=== PATIENT | male | born 1970 | race Caucasian/White ===

== ENCOUNTER 2018-01-21 13:14 | Day surgery (SDC) | payer BC ==
[~2018-01-21] VITALS: Ht 177.8 cm; Wt 66.9 kg
[2018-01-21] MEDS ORDERED: TOPROL XL 50MG50 MG (13:42)
[2018-01-21 13:44] VITALS: BP 159/82; PULSE 105; TEMP 98.2
[2018-01-21] MEDS ORDERED: CIPRO 500MG TA500 MG PO (13:44)
[2018-01-21 16:25] VITALS: BP 121/74; PULSE 79
[2018-01-21 16:34] VITALS: BP 124/69; PULSE 100; TEMP 100.7
[2018-01-21 16:40] VITALS: BP 121/78; PULSE 74; TEMP 97.9
[2018-01-21 16:55] VITALS: BP 125/78; PULSE 81
== END 2018-01-21 17:16 | disposition home or self-care (01) ==
LOC: SDCO 13:14
DX: K94.09 Other complications of colostomy (principal); D64.9 Anemia, unspecified; K21.9 Gastro-esophageal reflux disease without esophagitis; I10 Essential (primary) hypertension; Z85.51 Personal history of malignant neoplasm of bladder; Z83.3 Family history of diabetes mellitus
CPT/HCPCS: J0690; J2704; J3010; J7120

== ENCOUNTER → 2018-02-11 | Outpatient (CLI) | payer BC ==
[2018-02-11] VITALS (13 sets, daily range): BP systolic 106–159; BP diastolic 64–88; PULSE 59–81
[~2018-02-11] VITALS: Ht 177.8 cm; Wt 70.5 kg
[~2018-02-11] MED LIST: CIPRO 500MG TA500 MG PO; TOPROL XL 50MG50 MG; TOPROL XL 50MG50 MG PO
[2018-02-11 11:16] LABS: INR 1.2 (0.8-3.0); PROTHROMBIN TIME 13.4 SECONDS (9.7-12.8)
== END ==
LOC: COL.RAD 10:15
PROVIDERS: Internal Medicine
DX: C18.9 Malignant neoplasm of colon, unspecified (principal); K76.89 Other specified diseases of liver; Z85.51 Personal history of malignant neoplasm of bladder; Z92.21 Personal history of antineoplastic chemotherapy; Z92.3 Personal history of irradiation
CPT/HCPCS: J2250; J3010

== ENCOUNTER → 2018-03-20 | Outpatient (CLI) | payer BC | LOC: COL.RAD 10:16 | DX: Z43.6 Encounter for attention to other artificial openings of urinary tract (principal); N13.1 Hydronephrosis with ureteral stricture, not elsewhere classified ==

== ENCOUNTER 2018-04-02 12:07 | Day surgery (SDC) | payer BC ==
[~2018-04-02] VITALS: Ht 177.8 cm; Wt 64.5 kg
[2018-04-02 12:33] VITALS: BP 124/79; PULSE 93; TEMP 98.2
[2018-04-02] MEDS ORDERED: ELIQUIS 2.5 PO (12:40)
[2018-04-02 16:04] VITALS: BP 108/68; PULSE 94
[2018-04-02] MEDS ORDERED: NORCO 325 MG-51 TAB PO (16:14)
[2018-04-02 16:20] VITALS: BP 107/66; PULSE 82
[2018-04-02 16:35] VITALS: BP 98/62; PULSE 72
== END 2018-04-02 16:55 | disposition home or self-care (01) ==
LOC: SDCO 12:07
DX: C18.9 Malignant neoplasm of colon, unspecified (principal); C78.7 Secondary malignant neoplasm of liver and intrahepatic bile duct; Z79.899 Other long term (current) drug therapy; I10 Essential (primary) hypertension; K21.9 Gastro-esophageal reflux disease without esophagitis; Z92.21 Personal history of antineoplastic chemotherapy; Z92.3 Personal history of irradiation; Z85.51 Personal history of malignant neoplasm of bladder; Z79.01 Long term (current) use of anticoagulants; Z93.6 Other artificial openings of urinary tract status
CPT/HCPCS: C1788; J0690; J1644; J2250; J2704; J3010; J7120

== ENCOUNTER → 2018-11-04 | Outpatient (CLI) | payer BC ==
[~2018-11-04] VITALS: Ht 177.8 cm; Wt 65.0 kg
[~2018-11-04] MED LIST changes: +ELIQUIS 2.5 PO; +NORCO 325 MG-51 TAB PO
[2018-11-04 13:10] VITALS: BP 126/78; PULSE 117
[2018-11-04 14:30] VITALS: BP 107/71; PULSE 118
[2018-11-04 15:01] LABS: PLEURAL FLUID RBC 2000 /mm3 (0-0); PLEURAL FLUID WBC 1365 /mm3
[2018-11-04 15:14] LABS: PLEURAL FLUID COLOR YELLOW
--- NOTE | 2018-11-04 15:14 | NUR ---
PT TAKEN DOWN TO POV IN WHEELCHAIR. PT VERBALILZED NO COMPLAINTS OF PAIN OR NEEDS
[2018-11-04 15:15] LABS: PLEURAL FLUID APPEARANCE HAZY
[2018-11-04 15:52] LABS: GLUCOSE,PLEURAL FLUID 115 mg/dL; TOTAL PROTEIN,PLEURAL FLUID 3.3 gm/dL
== END ==
LOC: COL.RAD 12:48
PROVIDERS: Internal Medicine
DX: C18.8 Malignant neoplasm of overlapping sites of colon (principal); J90 Pleural effusion, not elsewhere classified

== ENCOUNTER → 2018-11-06 | Outpatient (CLI) | payer BC ==
[~2018-11-06] VITALS: Ht 177.8 cm; Wt 64.1 kg
[2018-11-06] VITALS (14 sets, daily range): BP systolic 104–129; BP diastolic 67–86; PULSE 102–117
[~2018-11-06] MED LIST changes: +OMNICEF 300MG300 MG PO
[2018-11-06 08:35] LABS: INR 1.1 (0.8-3.0)
--- NOTE | 2018-11-06 08:50 | NUR ---
pt to ct per wheelchair. Pt positioned in prone position. Monitors applied to pt.
--- NOTE | 2018-11-06 09:00 | NUR ---
Dr Arroyo into room and talks with pt.
--- NOTE | 2018-11-06 09:06 | NUR ---
Specimen obtained by Dr Arroyo, removed 380 mls of yellow brown drainage. Specimens labeled.
[2018-11-06 10:37] LABS: PERITONEAL -POLYMORPHONUCLEAR 72.1 % (0-25)
[2018-11-06 10:38] LABS: PERITONEAL FLUID RBC 45000 /mm3 (0-0)
--- NOTE | 2018-11-06 10:38 | NUR ---
Dismissal instructions gone over with pt. Verbalized understanding of instructions.
--- NOTE | 2018-11-06 11:30 | NUR ---
pt out to car per wheelchair. Denies complaints at this time. Pt up and into car without difficulty.
== END ==
LOC: COL.RAD 08:06
PROVIDERS: Internal Medicine
DX: C18.8 Malignant neoplasm of overlapping sites of colon (principal); C78.5 Secondary malignant neoplasm of large intestine and rectum; K76.89 Other specified diseases of liver; N19 Unspecified kidney failure; N13.30 Unspecified hydronephrosis; R60.0 Localized edema; D50.9 Iron deficiency anemia, unspecified; D72.829 Elevated white blood cell count, unspecified; Z85.51 Personal history of malignant neoplasm of bladder; Z92.21 Personal history of antineoplastic chemotherapy; Z92.3 Personal history of irradiation; J90 Pleural effusion, not elsewhere classified; Z93.6 Other artificial openings of urinary tract status
CPT/HCPCS: 19804

== ENCOUNTER 2018-11-10 13:50 | Observation (INO) | payer BC ==
[~2018-11-10] VITALS: Ht 157.5 cm; Wt 68.0 kg
[~2018-11-10 13:50] MED LIST changes: -OMNICEF 300MG300 MG PO
[2018-11-10] MEDS ORDERED: CIPRO 500MG TA500 MG PO (14:08)
[2018-11-10 14:11] VITALS: BP 118/68; PULSE 105; TEMP 98.2
--- NOTE | 2018-11-10 14:15 | NUR ---
PT ARRIVED TO ROOM 309 VIA WHEELCHAIR.ORIENTED TO ROOM.CALL LIGHT IN PLACE.DENIES ANY NEEDS AT THIS TIME.WILL CONTINUE TO MONITOR.
--- NOTE | 2018-11-10 14:30 | NUR ---
PATIENT AWAKE,A/OX3.DENIES ANY PAIN OR DISCOMFORT AT THIS TIME.AMBULATES WITH SBA.LSCTA.VITALS OBTAINED AND STABLE.RETAIL SHIFT SUPERVISOR EQUAL BILAT.ABD SOFT AND NON TENDER.BOWEL SOUNDS PRESENT AND AUDIBLE.ILEOSTOMY TO LEFT LOWER ABD.PULSES PALPABLE.1+ EDEMA TO BILAT LOWER EXTREMITIES.NO NEEDS VOICED AT THIS TIME.CALL LIGHT IN REACH
--- NOTE | 2018-11-10 15:00 | NUR ---
PT REPORTS DESIRE TO GO HOME AND RETURN TOMORROW FOR HIS PROCEDURE.DARCI GIVENS APRN, NOTIFIED ABOUT PATIENT'S DECISION.DOCTOR SUSANA AND DARCI GIVENS APRN ROUNDED ON PATIENT AND ARE OKAY WITH PATIENT GOING HOME AFTER RECEIVING ROCEPHIN.
--- NOTE | 2018-11-10 16:24 | NUR ---
PATIENT TO RECEIVE ROCEPHIN AND DISCHARGE HOME TO RETURN TOMORROW FOR PROCEDURE.PATIENT'S PORT WAS ACCESSED IN STERILE FASHION TO LEFT CHEST.PORT FLUSHED WELL WITH GOOD BLOOD RETURN.ROCEPHIN ADMINISTERED.PATIENT TOLERATED WELL.DENIES ANY CONCERNS AT THIS TIME.
[2018-11-10] MEDS ORDERED: OMNICEF 300MG300 MG PO (16:26)
--- NOTE | 2018-11-10 16:42 | NUR ---
PT DISCHARGE HOME AT THIS TIME.INSTRUCTIONS TO RETURN TO ADMISSIONS AT 0800 TOMORROW FOR 0900 PRODECURE GIVEN.PATIENT AND VOICE UNDERSTANDING.THIS RN ESCORTED PATIENT OUT VIA WHEELCHAIR.
== END 2018-11-10 17:44 | disposition home or self-care (01) ==
LOC: MEDICAL 13:50
PROVIDERS: ADMIT Family Medicine
DX: L02.211 Cutaneous abscess of abdominal wall (principal); C18.9 Malignant neoplasm of colon, unspecified; C78.7 Secondary malignant neoplasm of liver and intrahepatic bile duct; Z85.51 Personal history of malignant neoplasm of bladder; Z93.6 Other artificial openings of urinary tract status; Z53.09 Procedure and treatment not carried out because of other contraindication
CPT/HCPCS: A4216; J0696

== ENCOUNTER 2018-11-11 08:09 | Outpatient (CLI) | payer BC ==
[~2018-11-11] VITALS: Ht 177.8 cm; Wt 63.9 kg
[2018-11-11] VITALS (18 sets, daily range): BP systolic 107–136; BP diastolic 67–85; PULSE 98–122; TEMP 97.5
[~2018-11-11 08:09] MED LIST changes: +OMNICEF 300MG300 MG PO
--- NOTE | 2018-11-11 09:30 | NUR ---
Pt to ct per wheelchair. Pt placed in prone position on ct table monitors applied.
--- NOTE | 2018-11-11 09:58 | NUR ---
Dr Bae removed 290 mls from abscess near liver. Dr Bae also removed 670 mls of pleural fluid from right lung. Specimen on abscess sent to lab and labeled.
--- NOTE | 2018-11-11 10:25 | NUR ---
Report to Juhi MOON, care assumed.
--- NOTE | 2018-11-11 10:58 | NUR ---
patient arrived to room 304.transfered to bed.oriented to room.patient reports some discomfort to his abd.spouse at bedside.no other needs voiced at this time.call light in reach
--- NOTE | 2018-11-11 13:45 | NUR ---
PATIENT ARRIVED TO FLOOR ROOM # 304 FROM INTERVENTIONAL RADIOLOGY. A/O X 4. REPORTING COMPLAINTS OF LEFT SIDDE PAIN. DENIES NEEDING INTERVENTION. FVS OBTAINED WNL. LUNG SOUNDS CTA THROUGHOUT WITH GOOD AIR EXCHANGE. HEART RATE REGULAR AND TACHYCARDIC. FAMIY AT BEDSIDE. DENIES FURTHER NEEDS.
--- NOTE | 2018-11-11 16:41 | NUR ---
PT DISCHARGE HOME AT THIS TIME.ALL DISCHARGE INSTRUCTIONS REVIEWED.FIRST DOSE OF OMNICEF GIVEN.NONA BARAJAS CALLED TO CONFIRM PRESCRIPTION.PATIENT UPDATED.ALL PAPERWORK SIGNED AND ALL QUESTIONS ANSWERED.THIS RN VOICED UNDERSTANDING OF INSTRCUTIONS.THIS RN ESCORTED PATIENT OUT.
== END 2018-11-11 17:18 | disposition home or self-care (01) ==
LOC: COL.RAD 08:09 → PEDS 10:44 → COL.RAD 17:18
DX: C18.8 Malignant neoplasm of overlapping sites of colon (principal); J93.9 Pneumothorax, unspecified; Z95.9 Presence of cardiac and vascular implant and graft, unspecified
CPT/HCPCS: OP; 99232-AI; J2250; J3010

== ENCOUNTER → 2018-11-18 | Outpatient (CLI) | payer BC ==
[~2018-11-18] VITALS: Ht 177.8 cm; Wt 65.2 kg
[2018-11-18 12:30] VITALS: BP 118/70; PULSE 101
[2018-11-18 13:10] VITALS: BP 120/80; PULSE 112
--- NOTE | 2018-11-18 13:30 | NUR ---
pt was taken to lobby and parents took him to pov
[2018-11-18 14:02] LABS: PLEURAL FLUID RBC 6000 /mm3 (0-0); PLEURAL FLUID WBC 1577 /mm3
[2018-11-18 14:10] LABS: GLUCOSE,PLEURAL FLUID 61 mg/dL; TOTAL PROTEIN,PLEURAL FLUID 3.6 gm/dL
[2018-11-18 15:41] LABS: PLEURAL FLUID COLOR YELLOW
[2018-11-18 15:42] LABS: PLEURAL FLUID APPEARANCE HAZY
== END ==
LOC: COL.RAD 12:00
PROVIDERS: Internal Medicine
DX: C18.8 Malignant neoplasm of overlapping sites of colon (principal); J90 Pleural effusion, not elsewhere classified; Z95.9 Presence of cardiac and vascular implant and graft, unspecified

== ENCOUNTER → 2018-11-26 | Outpatient (CLI) | payer BC | LOC: COL.RAD 07:30 | DX: C18.8 Malignant neoplasm of overlapping sites of colon (principal); L02.211 Cutaneous abscess of abdominal wall; J90 Pleural effusion, not elsewhere classified | CPT/HCPCS: Q9967 ==

== ENCOUNTER → 2019-01-29 | Outpatient (CLI) | payer BC | LOC: COL.RAD 09:25 | DX: C18.8 Malignant neoplasm of overlapping sites of colon (principal); J90 Pleural effusion, not elsewhere classified; R59.0 Localized enlarged lymph nodes; Z95.9 Presence of cardiac and vascular implant and graft, unspecified | CPT/HCPCS: Q9967 ==

== ENCOUNTER → 2019-02-09 | Outpatient (CLI) | payer BC ==
[~2019-02-09] VITALS: Ht 177.8 cm; Wt 55.8 kg
[~2019-02-09] MED LIST changes: +DOXYCYCLINE 10100 MG PO
[2019-02-09 11:47] VITALS: BP 109/78; PULSE 120
[2019-02-09 13:16] VITALS: BP 100/66; PULSE 111
--- NOTE | 2019-02-09 13:30 | NUR ---
PT WAS TAKEN TO RAD LOBBY AND TURNED OVER TO HIS PARENTS.
[2019-02-09 14:49] LABS: PLEURAL FLUID RBC 16000 /mm3 (0-0); PLEURAL FLUID WBC 5733 /mm3
[2019-02-09 15:05] LABS: GLUCOSE,PLEURAL FLUID 68 mg/dL; TOTAL PROTEIN,PLEURAL FLUID 2.6 gm/dL
[2019-02-09 15:10] LABS: PLEURAL FLUID APPEARANCE CLOUDY; PLEURAL FLUID COLOR AMBER
== END ==
LOC: COL.RAD 11:12
PROVIDERS: Internal Medicine
DX: J90 Pleural effusion, not elsewhere classified (principal)

== ENCOUNTER 2019-02-15 07:07 | Inpatient (IN) | payer BC ==
[~2019-02-15] VITALS: Ht 177.8 cm; Wt 57.7 kg
[2019-02-15] VITALS (31 sets, daily range): BP systolic 94–132; BP diastolic 53–73; PULSE 13–149; TEMP 97.1–97.7
[~2019-02-15 07:07] MED LIST changes: -DOXYCYCLINE 10100 MG PO
[2019-02-15] MEDS ORDERED: DOXYCYCLINE 10100 MG PO (07:22)
--- NOTE | 2019-02-15 08:00 | NUR ---
PT WAS TAKEN TO CT ROOM AND ASSISTED ON THE CT BED. MONITORING EQUIPMENT PLACED. IMAGES TAKEN AND SENT.
--- NOTE | 2019-02-15 08:03 | NUR ---
PT WAS GIVEN 0.5 MG VERSED AND 25 MCG FENTANYL FOR PAIN
--- NOTE | 2019-02-15 08:50 | NUR ---
PT WAS TAKEN BY CART TO EU 16. PT TRANSFERS SELF TO BED. REPORT TO AMBAR. MONITORING EQUIPMENT PLACED. VSS. SITE IS CDI COVERED WITH TEGADERM. NO FLUID IN TUBING. DAD BROUGHT INTO ROOM. BELONGINGS TAKEN TO PT. SPECIMEN TO LAB
--- NOTE | 2019-02-15 12:55 | NUR ---
report given to Hannah MOON, pt moved to 306 via bed
--- NOTE | 2019-02-15 13:13 | NUR ---
Pt arrived to room 306 at this time. He is A/O x3, very thin weak man. Slid over from one bed to the other. Pt currently rates pain 2/10, site to R lower back shows small amount of blood draining. Drainage purulent, orange/red colored. Pt has urostomy bag in place, stoma soft and pink. PAC accessed, good blood return, flushes without complications. Pt ordered some lunch. His father is at bedside. POC discussed with patient who verbalizes understanding. No needs at this time. Call light within reach.
[2019-02-15 14:59] LABS: MEAN CELL VOLUME 89 fl (80.0-100.0); MEAN CORPUSCULAR HGB CONC 32 g/dl (33.0-37.0); MEAN PLATELET VOLUME 10.1 fl (7.4-10.4); PLATELET COUNT 180 K/mm3 (130-400); RED BLOOD COUNT 2.32 M/mm3 (4.20-5.60); REDCELL DISTRIBUTION WIDTH-CV 18.6 % (11.5-14.5)
[2019-02-15 15:02] LABS: HEMATOCRIT 20.7 % (42.0-52.0); HEMOGLOBIN 6.6 g/dl (13.5-18.0); MEAN CORPUSCULAR HEMOGLOBIN 28 pg (27.0-31.0)
[2019-02-15 15:09] LABS: ALBUMIN 2.1 gm/dL (3.5-5.0); BILIRUBIN,TOTAL 1.6 mg/dL (0.0-1.0); CREATININE, serum 1.61 (0.66-1.25); TOTAL PROTEIN 6.4 gm/dL (6.4-8.2)
[2019-02-15 15:49] LABS: BAND 1 % (0-10); LYMPHOCYTE 1 % (20.0-51.0); METAMYELOCYTE 1 % (0-0); NEUTROPHILS 96 % (42.0-75.2); PLATELET ESTIMATE NORMAL (NORMAL)
[2019-02-15 15:50] LABS: BURR CELLS 1+; HELMET CELLS 1+; OVALOCYTES 1+
--- NOTE | 2019-02-15 23:05 | NUR ---
BLOOD TRANSFUSION STARTED AT 1958 PER PROTOCOL. SIGNED CONSENT OBTAINED AND ON CHART. PATIENT EDUCATED ON PROCESS FOR TRANSFUSION AND SIGN AND SYMPTOMS TO REPORT FOR ADVERSE REACTIONS. VERBALIZES ANXIETY ABOUT HAVING TRANSFUSION, ALL QUESTIONS AND CONCERNS ANSWERED. STAYED WITH PATIENT FOR FIRST 15 MINUETS PER PROTOCOL, TBIS WAS REASSURING TO PATIENT. SEE FLOW SHEET FOR FVS OBTAINED AT BEGINNING OF TRANSFUSION. NO PRE MEDICATIONS ORDERED. LUNG SOUNDS CTA THROUGHOUT BEFORE TRANSFUSION STARTED. SEE FLOWSHEET FOR VITAL SIGNS OBTAINED DURING TRANSFUSION.
[2019-02-16 00:59] VITALS: BP 95/63; PULSE 81; TEMP 97.7
[2019-02-16 03:50] VITALS: BP 96/56; PULSE 79; TEMP 97.4
[2019-02-16 06:09] LABS: MEAN CELL VOLUME 88 fl (80.0-100.0); MEAN CORPUSCULAR HGB CONC 33 g/dl (33.0-37.0); MEAN PLATELET VOLUME 10.2 fl (7.4-10.4); PLATELET COUNT 159 K/mm3 (130-400); REDCELL DISTRIBUTION WIDTH-CV 17.8 % (11.5-14.5)
[2019-02-16 06:16] LABS: INR 1.4 (0.8-3.0); PROTHROMBIN TIME 16.5 SECONDS (9.7-12.8)
[2019-02-16 06:19] LABS: HEMATOCRIT 22.1 % (42.0-52.0); HEMOGLOBIN 7.2 g/dl (13.5-18.0); MEAN CORPUSCULAR HEMOGLOBIN 29 pg (27.0-31.0)
[2019-02-16 06:21] LABS: ALBUMIN 1.8 gm/dL (3.5-5.0); BILIRUBIN,TOTAL 1.1 mg/dL (0.0-1.0); CALCIUM 7.9 mg/dL (8.4-10.2); CREATININE, serum 1.37 (0.66-1.25); POTASSIUM 3.7 mmol/L (3.4-5.0); TOTAL PROTEIN 5.8 gm/dL (6.4-8.2)
[2019-02-16 06:37] LABS: BAND 7 % (0-10); LYMPHOCYTE 6 % (20.0-51.0); NEUTROPHILS 84 % (42.0-75.2)
[2019-02-16 06:38] LABS: ANISOCYTOSIS 1+; PLATELET ESTIMATE NORMAL (NORMAL)
[2019-02-16 07:46] VITALS: BP 102/68; PULSE 84; TEMP 97.8
--- NOTE | 2019-02-16 09:12 | NUR ---
DIDI attended clinical rounds. The hospitalist discussed a possible transfer to [facility]. DIDI then followed up with the patient and the patient's parents, Inga and Joseph, to discuss discharge plan. The patient lives in [place] and works at [employer]. His parents report that they just moved in with him. He reports independence with ADLs and has a walker available, if needed. The patient's PCP is Dr. Garo Cheatham and he receives his medications at the [facility]. He reports no difficulties obtaining his meds. The patient does not have advanced directives, but he was interested in obtaining a form for DPOA-HC. DIDI provided. The patient plans to return back home with parents upon discharge. No other identified needs at this time, but SW to continue to follow.
--- NOTE | 2019-02-16 10:14 | NUR ---
RECIEVED ORDER TO FLUSH DRAIN WITH 10ML OF SALINE. THIS NURSE FLUSHED 10ML NORMAL SALINE INTO TUBING GOING TO TUBING AND THEN FLUSHED OUT THE TUBING GOING TO BAG TO CLEAR OUT TUBING. PT TOLERATED WELL. DID HAVE SOME DISCOMFORT BUT TUBING FLUSHED WELL WITHOUT ISSUE.
[2019-02-16 11:57] VITALS: BP 105/70; PULSE 91; TEMP 97.7
--- NOTE | 2019-02-16 12:02 | NUR ---
Initial visit; Patient thanked [employer] for looking in on him and offering spiritual care. Patient states he is maybe doing a little better. Another family member was present.
--- NOTE | 2019-02-16 13:00 | NUR ---
THIS NURSE TOLD PT AND FAMILY THAT [facility] DID ACCEPT PT AND THAT WE ARE JUST WAITING FOR THEM TO GET A BED TO OPEN UP FOR PT. VERBALIZED UNDERSTANDING. PT STATED THAT HE IS ANTICIPATING THAT IT WOULD BE TOMORROW, [facility] WILLING TO TRANSFER TODAY IF ABLE
--- NOTE | 2019-02-16 16:00 | NUR ---
[facility] HERE TO TRANSFER PATIENT TO [facility]. PT FAMILY WILL BE TO AFTER PT ARRIVES. REPORT CALLED TO [facility].
== END 2019-02-16 16:00 | disposition critical access hospital (66) | DRG 871 ==
LOC: COL.RAD 07:07 → MEDICAL 13:39
PROVIDERS: Nurse Practitioner Family; ADMIT Family Medicine
PROC: 0W9G30Z Drainage of Peritoneal Cavity with Drainage Device, Percutaneous Approach (ICD-10-PCS; principal; 2019-02-15)
DX: A41.9 Sepsis, unspecified organism (principal); K68.19 Other retroperitoneal abscess; E43 Unspecified severe protein-calorie malnutrition; Z68.1 Body mass index [BMI] 19.9 or less, adult; D64.9 Anemia, unspecified; N18.9 Chronic kidney disease, unspecified; B96.89 Other specified bacterial agents as the cause of diseases classified elsewhere; Z85.51 Personal history of malignant neoplasm of bladder; Z92.21 Personal history of antineoplastic chemotherapy
CPT/HCPCS: 99222-AI; 99233-AI; 99239; A4216; J0692; J2250; J3010; J7030; J7040; P9016